=== PATIENT | female | born 1940 | race Caucasian/White ===

== ENCOUNTER 2019-01-30 13:12 | Emergency (ER) | payer OTHER, MEDICARE ==
--- OUTSIDE RECORDS SUMMARY | 2019-01-30 13:14 | XMS REPORT ---
:1940 [facility] Address [address] [place] [address] [address]. [address] [place] [address] Care Team Providers Name Role Phone Unavailable Unavailable Unavailable Problems This patient has no known problems. Allergies, Adverse Reactions, Alerts This patient has no known allergies or adverse reactions. Medications This patient has no known medications.
[2019-01-30 14:26] LABS: Urine Blood TRACE (NEG); Urine Glucose NEGATIVE (NEG); Urine Protein NEGATIVE (NEG); Urine Specific Gravity <1.005 (1.005-1.030); Urine pH 5.5 (5.0-7.0)
[2019-01-30 14:31] LABS: Absolute Lymphocytes (CBC) 1.7 K/uL (0.7-4.9); Basophils % 0.4 % (0-1.3); Hematocrit 34.1 % (36.0-45.0); Lymphocytes % 23.7 % (15.3-44.8); MPV 9.1 fL (7.6-11.3); RBC Red Blood Cell Count 3.46 M/uL (3.86-4.86)
[2019-01-30 14:42] LABS: Bilirubin Direct 0.1 mg/dL (0-0.2); Bilirubin Total 0.5 mg/dL (0.2-1.0); Potassium 3.9 mmol/L (3.5-5.1); Protein, Total 7.5 g/dL (6.4-8.2)
[2019-01-30 15:06] LABS: Urine Bacteria 20-50 /HPF (<20); Urine Culture Reflex Order REFLEXED; Urine Mucus 1+ /HPF (NONE SEEN)
--- NOTE | 2019-01-30 15:21 | RAD REPORT ---
EXAM DESCRIPTION: CT - Abdomen Pelvis W Contrast - 01/30/2019 3:08 pm CLINICAL HISTORY: LUQ;Abd pain COMPARISON: None. TECHNIQUE: Biphasic, helical CT imaging of the abdomen and pelvis was performed following 100 ml non -ionic IV contrast. No oral contrast administered. All CT scans are performed using dose optimization technique as appropriate and may include automated exposure control or mA/KV adjustment according to patient size. FINDINGS: No acute lung base finding. Scarring or atelectasis changes are present. No pericardial ef fusion. The liver, spleen, and pancreas show no suspicious findings. Gallbladder and biliary tree are also wi thout suspicious finding. Symmetric renal function is seen with no hydronephrosis or suspicious renal mass. No pyelonephritis o r acute parenchymal process. No bladder abnormalities. No adrenal abnormalities. No dilated bowel loops or bowel wall thickening. No free air, free fluid or inflammatory stranding. No hernia, mass or bulky lymphadenopathy. Uterus and ovaries show no suspicious findings for the pat ient's age. No acute bone findings. Patient has advanced mid lower lumbar degenerative change. There is spinal st enosis at L3-4 and L4-5. IMPRESSION: Contrast enhanced CT abdomen and pelvis imaging shows no acute finding. No abnormality s een to explain left upper quadrant pain pattern. Patient has significant mid and lower lumbar spine degenerative change without an acute process seen. There is L3-4 and L4-5 central spinal stenosis.
[2019-01-30] MEDS ORDERED: METHOCARBAMOL 500 MG TAB ONE ×2 (17:26→17:32)
[2019-01-30] MEDS ORDERED: IBUPROFEN 200 MG TAB PO ONE (17:26)
[2019-01-30] MEDS ORDERED: IBUPROFEN 400 MG TAB ONE (17:26)
--- NOTE | 2019-01-30 18:17 | ER ---
Nurse's Notes [facility] Name: Mariah Arreguin Age: 78 yrs Sex: Female : 1940 Arrival Date: 01/30/2019 Time: 13:16 Bed 30 Private MD: Diagnosis: Other muscle spasm-LUQ/Abdominal Wall Presentation: 01/30 13:44 Presenting complaint: Patient states: Upper abdominal pain x 2 weeks, worse over last 3 hb days. Transition of care: patient was not received from another setting of care. Onset of symptoms was January 2019. Risk Assessment: Do you want to hurt yourself or someone else? Patient reports no desire to harm self or others. Initial Sepsis Screen: Does the patient meet any 2 criteria? No. Patient's initial sepsis screen is negative. Does the patient have a suspected source of infection? No. Patient's initial sepsis screen is negative. Care prior to arrival: None. 13:44 Method Of Arrival: Ambulatory hb 13:44 Acuity: MINESH 3 hb Historical: - Allergies: 13:46 No Known Allergies; hb - PMHx: 13:46 Asthma; hb - PSHx: 13:46 Toe; hb - Immunization history:: Adult Immunizations up to date. - Social history:: Smoking status: Patient/guardian denies using tobacco. - Ebola Screening: : No symptoms or risks identified at this time. Screenin:28 Abuse screen: Denies threats or abuse. Denies injuries from another. Nutritional rv screening: No deficits noted. Tuberculosis screening: No symptoms or risk factors identified. Fall Risk None identified. Assessment: 14:27 General: Appears in no apparent distress. uncomfortable, Behavior is calm, cooperative. rv Pain: Complains of pain in abdomen. Neuro: Level of Consciousness is awake, alert, obeys commands, Oriented to person, place, time, situation. Cardiovascular: Patient's skin is warm and dry. Respiratory: Airway is patent. GI: Bowel sounds present X 4 quads. Abd is soft X 4 quads Abdomen is tender to palpation in right upper quadrant and left upper quadrant. : No signs and/or symptoms were reported regarding the genitourinary system. EENT: No signs and/or symptoms were reported regarding the EENT system. Derm: Skin is intact. Musculoskeletal: No signs and/or symptoms reported regarding the musculoskeletal system. 16:00 Reassessment: talked to the patient and explained the results of the diagnostics. rv awaiting for Dr King to come in and talk to the patient. 17:23 Reassessment: Dr King went in and explained the results and plan of care to the rv patient and family. 17:58 Reassessment: Patient appears in no apparent distress at this time. Patient is alert, rv oriented x 3, equal unlabored respirations, skin warm/dry/pink. Patient states feeling better. Patient states symptoms have improved. Vital Signs: 13:46 BP 138 / 94; Pulse 68; Resp 16; Temp 98.2(O); Pulse Ox 96% on R/A; Weight 68.04 kg; hb Height 5 ft. 2 in. (157.48 cm); Pain 10/10; 15:32 BP 141 / 73; Pulse 68; Resp 16; Pulse Ox 99% on R/A; rv 16:30 BP 128 / 61; Pulse 68; Resp 15; Pulse Ox 99% on R/A; rv 17:21 BP 118 / 59; Pulse 70; Resp 14; Pulse Ox 100% on R/A; rv 17:57 BP 136 / 69; Pulse 69; Resp 15; Pulse Ox 98% on R/A; rv 13:46 Body Mass Index 27.44 (68.04 kg, 157.48 cm) hb ED Course: 13:16 Patient arrived in ED. mr 13:45 Triage completed. hb 13:46 Arm band placed on. hb 13:49 Evans King MD is Attending Physician. kdr 13:53 Donato Payne RN is Primary Nurse. rv 14:05 Inserted saline lock: 20 gauge in left forearm, using aseptic technique. Blood rv collected. 14:05 Initial lab(s) drawn, by me, sent to lab. rv 14:27 Patient has correct armband on for positive identification. Placed in gown. Bed in low rv position. Call light in reach. Side rails up X2. Adult w/ patient. Pulse ox on. NIBP on. 15:17 CT Abd/Pelvis - IV Contrast Only In Process Unspecified. EDMS 18:33 No provider procedures requiring assistance completed. IV discontinued, intact, rv bleeding controlled, No redness/swelling at site. Pressure dressing applied. Administered Medications: 17:30 Drug: Robaxin 750 mg Route: PO; rv 17:57 Follow up: Response: No adverse reaction; Marked relief of symptoms; Pain is decreased rv 17:31 Drug: Ibuprofen 600 mg Route: PO; rv 17:57 Follow up: Response: No adverse reaction; Marked relief of symptoms; Pain is decreased rv Outcome: 18:16 Discharge ordered by . kdr 18:33 Discharged to home ambulatory, with family. rv 18:33 Condition: improved 18:33 Discharge instructions given to patient, Instructed on discharge instructions, follow up and referral plans. medication usage, Demonstrated understanding of instructions, follow-up care, medications, Prescriptions given X 3. 18:33 Patient left the ED. rv Addendum: 02/02/2019 08:38 Addendum: Culture Results: Positive urine culture. Patient was not prescribed a a5 antibiotics at discharge. Report given to MANASA for further evaluation and then to overnight cashier for follow up with patient. Prescription called-in to pharmacy of choice. to [facility] in [place], [place] per pt's request. Signatures: Dispatcher [employer] EDMS Evans King MD MD [facility] Yen YeungderJocelyne peraza, RN RN aa5 Radha Tong RN RN Donato Payne, RN RN rv Corrections: (The following items were deleted from the chart) 01/30 13:47 13:44 Presenting complaint: Patient states: Upper abdominal pain x 2 weeks, worse over hb last 3 days hb
--- NOTE | 2019-01-30 18:17 | EDPHYS ---
Physician Documentation [facility] Name: Mariah Arreguin Age: 78 yrs Sex: Female : 1940 Arrival Date: 01/30/2019 Time: 13:16 Bed 30 Private MD: ED Physician Evans King HPI: 01/31 07:58 This 78 yrs old Female presents to ER via Ambulatory with complaints of kdr Abdominal Pain. 07:58 The patient presents with abdominal pain in the left upper quadrant. Onset: The kdr symptoms/episode began/occurred gradually, 1 week(s) ago. The symptoms do not radiate. Associated signs and symptoms: Pertinent positives: Pertinent negatives: nausea and vomiting, chest pain, constipation, diarrhea, fever, headache, hematuria, nausea, palpitations. The symptoms are described as achy, intermittent, sharp, vague, waxing/waning. Modifying factors: The symptoms are alleviated by nothing, the symptoms are aggravated by movement, touching the area. Severity of pain: At its worst the pain was moderate just prior to arrival, in the emergency department the pain is unchanged. The patient has experienced similar episodes in the past, Has had these same s/s intermittent for some years. Prior work-ups have not revealed any particular etiology. The patient has not recently seen a physician. Historical: - Allergies: 01/30 13:46 No Known Allergies; hb - PMHx: 13:46 Asthma; hb - PSHx: 13:46 Toe; hb - Immunization history:: Adult Immunizations up to date. - Social history:: Smoking status: Patient/guardian denies using tobacco. - Ebola Screening: : No symptoms or risks identified at this time. ROS: 01/31 07:58 Constitutional: Negative for fever, chills, and weight loss, Eyes: Negative for injury, kdr pain, redness, and discharge, Neck: Negative for injury, pain, and swelling, Cardiovascular: Negative for chest pain, palpitations, and edema, Respiratory: Negative for shortness of breath, cough, wheezing, and pleuritic chest pain, Back: Negative for injury and pain, : Negative for injury, bleeding, discharge, and swelling, MS/Extremity: Negative for injury and deformity, Skin: Negative for injury, rash, and discoloration, Neuro: Negative for headache, weakness, numbness, tingling, and seizure activity. Psych: Negative for depression, anxiety, suicide ideation, homicidal ideation, and hallucinations, Allergy/Immunology: Negative for hives, rash, and allergies, Endocrine: Negative for neck swelling, polydipsia, polyuria, polyphagia, and marked weight changes, Hematologic/Lymphatic: Negative for swollen nodes, abnormal bleeding, and unusual bruising. Abdomen/GI: Positive for abdominal pain, of the anterior aspect of left lateral abdomen, Negative for nausea, vomiting, and diarrhea, constipation, abdominal cramps, abdominal distension. Exam: 07:58 Constitutional: This is a well developed, well nourished patient who is awake, alert, kdr and in no acute distress. Head/Face: Normocephalic, atraumatic. Eyes: Pupils equal round and reactive to light, extra-ocular motions intact. Lids and lashes normal. Conjunctiva and sclera are non-icteric and not injected. Cornea within normal limits. Periorbital areas with no swelling, redness, or edema. Neck: Trachea midline, no thyromegaly or masses palpated, and no cervical lymphadenopathy. Supple, full range of motion without nuchal rigidity, or vertebral point tenderness. No Meningismus. Chest/axilla: Normal chest wall appearance and motion. Nontender with no deformity. No lesions are appreciated. Cardiovascular: Regular rate and rhythm with a normal S1 and S2. No gallops, murmurs, or rubs. Normal PMI, no JVD. No pulse deficits. Respiratory: Lungs have equal breath sounds bilaterally, clear to auscultation and percussion. No rales, rhonchi or wheezes noted. No increased work of breathing, no retractions or nasal flaring. Abdomen/GI: Soft, non-tender, with normal bowel sounds. No distension or tympany. No guarding or rebound. No evidence of tenderness throughout. Back: No spinal tenderness. No costovertebral tenderness. Full range of motion. Skin: Warm, dry with normal turgor. Normal color with no rashes, no lesions, and no evidence of cellulitis. MS/ Extremity: Pulses equal, no cyanosis. Neurovascular intact. Full, normal range of motion. Neuro: Awake and alert, GCS 15, oriented to person, place, time, and situation. Cranial nerves II-XII grossly intact. Motor strength 5/5 in all extremities. Sensory grossly intact. Cerebellar exam normal. Normal gait. Psych: Awake, alert, with orientation to person, place and time. Behavior, mood, and affect are within normal limits. Vital Signs: 01/30 13:46 BP 138 / 94; Pulse 68; Resp 16; Temp 98.2(O); Pulse Ox 96% on R/A; Weight 68.04 kg; hb Height 5 ft. 2 in. (157.48 cm); Pain 10/10; 15:32 BP 141 / 73; Pulse 68; Resp 16; Pulse Ox 99% on R/A; rv 16:30 BP 128 / 61; Pulse 68; Resp 15; Pulse Ox 99% on R/A; rv 17:21 BP 118 / 59; Pulse 70; Resp 14; Pulse Ox 100% on R/A; rv 17:57 BP 136 / 69; Pulse 69; Resp 15; Pulse Ox 98% on R/A; rv 13:46 Body Mass Index 27.44 (68.04 kg, 157.48 cm) hb MDM: 18:16 Patient medically screened. kdr 01/31 07:58 Data reviewed: vital signs, nurses notes, lab test result(s), radiologic studies. kdr Counseling: I had a detailed discussion with the patient and/or guardian regarding: the historical points, exam findings, and any diagnostic results supporting the discharge/admit diagnosis, lab results, radiology results, the need for outpatient follow up. 01/30 13:50 Order name: Basic Metabolic Panel; Complete Time: 15:08 kdr 01/30 13:50 Order name: CBC with Diff; Complete Time: 15:08 kdr 01/30 13:50 Order name: Creatinine for Radiology; Complete Time: 15:08 kdr 01/30 13:50 Order name: Hepatic Function; Complete Time: 15:08 kdr 01/30 13:50 Order name: Lipase; Complete Time: 15:08 kdr 01/30 14:08 Order name: Urine Microscopic Only; Complete Time: 15:08 iw 01/30 13:50 Order name: IV Saline Lock; Complete Time: 14:26 kdr 01/30 13:50 Order name: Labs collected and sent; Complete Time: 14:26 kdr 01/30 14:10 Order name: Urine Dipstick--Ancillary (enter results); Complete Time: 15:08 bd 01/30 14:19 Order name: CT Abd/Pelvis - IV Contrast Only; Complete Time: 16:22 kdr 01/30 15:18 Order name: Urine Culture EDMS Administered Medications: 01/30 17:30 Drug: Robaxin 750 mg Route: PO; rv 17:57 Follow up: Response: No adverse reaction; Marked relief of symptoms; Pain is decreased rv 17:31 Drug: Ibuprofen 600 mg Route: PO; rv 17:57 Follow up: Response: No adverse reaction; Marked relief of symptoms; Pain is decreased rv Disposition: 01/30/19 18:16 Discharged to Home. Impression: Other muscle spasm - LUQ/Abdominal Wall. - Condition is Stable. - Discharge Instructions: Muscle Cramps and Spasms, [id number], Heat Therapy, [id number]. - Prescriptions for Ibuprofen 600 mg Oral Tablet - take 1 tablet by ORAL route every 6 hours As needed take with food; 30 tablet. Robaxin 500 mg Oral Tablet - take 1 tablet by ORAL route every 6 hours As needed; 15 tablet. Tramadol 50 mg Oral Tablet - take 1 tablet by ORAL route every 8 hours As needed take 1./2 tables as needed; 12 tablet. - Medication Reconciliation Form, Thank You Letter form. - Follow up: Private Physician; When: 2 - 3 days; Reason: If symptoms return, Further diagnostic work-up, Recheck today's complaints, Continuance of care, Re-evaluation by your physician. - Problem is new. - Symptoms have improved. Signatures: Dispatcher [employer] EDMS Evans King MD MD [facility] Radha Tong RN RN Donato Payne RN RN rv Corrections: (The following items were deleted from the chart) 18:33 18:16 01/30/2019 18:16 Discharged to Home. Impression: Other muscle spasm - rv LUQ/Abdominal Wall. Condition is Stable. Forms are Medication Reconciliation Form, Thank You Letter, Antibiotic Education, Prescription Opioid Use. Follow up: Private Physician; When: 2 - 3 days; Reason: If symptoms return, Further diagnostic work-up, Recheck today's complaints, Continuance of care, Re-evaluation by your physician. Problem is new. Symptoms have improved. kdr
[2019-01-30 22:42] VITALS: TEMP 98.2
[2019-01-30 23:07] VITALS: BP 136/69; O2SAT 98
== END 2019-01-30 18:33 | disposition home or self-care (01) ==
LOC: ER 13:12
DX: M62.838 Other muscle spasm (principal)
CPT/HCPCS: 87088; 85025; 87086; 80048; 36415; 80076; 87077; 87186; 83690; 74177; 99284; Q9967; 81003; 81015